=== PATIENT | female | born 1990 | race Caucasian/White ===

== ENCOUNTER 2018-07-23 22:28 | Emergency (ER) | payer SELFPAY ==
[~2018-07-23] VITALS: Ht 167.6 cm; Wt 78.7 kg
[2018-07-23] MEDS ORDERED: ipratropium/albuterol 3ml nebule NEB ONE (22:35)
[2018-07-23] MEDS ORDERED: predniSONE 20 mg tablet PO ONE (23:05)
[2018-07-23 23:12] VITALS: BP 140/92
[2018-07-23] MEDS ORDERED: ALBU6.7H INH (23:24)
[2018-07-23] MEDS ORDERED: PRED20TA PO (23:24)
== END 2018-07-23 23:29 | disposition home or self-care (01) ==
LOC: ER 22:28
DX: J45.901 Unspecified asthma with (acute) exacerbation (principal); Z79.899 Other long term (current) drug therapy
CPT/HCPCS: 94640; 94760; 99283; J7512